=== PATIENT | male | born 1965 | race Caucasian/White ===

== ENCOUNTER 2018-11-21 18:03 | Emergency (ER) | payer MEDICARE, MEDICAID ==
[~2018-11-21] VITALS: Ht 175.3 cm; Wt 90.9 kg
[2018-11-21] MEDS ORDERED: NORCO 325 MG-101 TAB PO (18:24)
[2018-11-21] MEDS ORDERED: NOVOLOG 100U100 U/ML SQ (18:25)
[2018-11-21] MEDS ORDERED: LANTUS PEN100 U/ML SQ ×2 (18:25)
[2018-11-21] MEDS ORDERED: AMLODIPINE BESYL5 MG PO (18:26)
[2018-11-21] MEDS ORDERED: PRINIVIL20 M1 PO (18:26)
[2018-11-21] MEDS ORDERED: COREG 6.256.25 MG/TA PO (18:26)
[2018-11-21] MEDS ORDERED: CREON 60000 U-11 ECC (18:27)
[2018-11-21] MEDS ORDERED: PROTONIX20 M1 PO (18:27)
[2018-11-21] MEDS ORDERED: CYMBALTA60 M1 PO (18:27)
[2018-11-21] MEDS ORDERED: ATORVASTATIN CA10 MG PO (18:27)
[2018-11-21] MEDS ORDERED: CARAFATE (18:27)
[2018-11-21] MEDS ORDERED: ST. JOSEPH ASPI81 MG PO (18:27)
[2018-11-21] MEDS ORDERED: CLOPIDOGREL PO (18:28)
[2018-11-21 18:50] VITALS: BP 149/91
[2018-11-21 19:11] LABS: EOS # 0.2 (0.04-0.40); EOS % 3.1 % (0.0-4.0); HEMATOCRIT 38.5 % (42.0-52.0); HEMOGLOBIN 13.5 g/dL (13.5-18.0); LYMPH# 1.7 (1.50-4.00); MEAN CELL VOLUME 86 fl (78-100); MEAN CORPUSCULAR HEMOGLOBIN 30 pg (27-31); MEAN CORPUSCULAR HGB CONC 35 g/dL (33-37); MEAN PLATELET VOLUME 9.2 fl (7.4-10.4); MONO # 0.6 (0.20-0.80); NEU # 3.3 (1.40-6.50); PLATELET COUNT 193 K/mm3 (130-400); WHITE BLOOD COUNT 5.8 K/mm3 (4.8-10.8)
[2018-11-21 19:19] LABS: ALBUMIN 3.7 g/dL (3.5-5.0)
[2018-11-21 19:20] LABS: POTASSIUM 3.9 mmol/L (3.5-5.1)
[2018-11-21 19:22] LABS: TOTAL PROTEIN 6.8 g/dL (6.4-8.3)
[2018-11-21 19:24] LABS: TOTAL BILIRUBIN 0.6 mg/dL (0.2-1.2)
[2018-11-21 19:35] LABS: TROPONIN-I 0.05 ng/mL (<0.030)
== END 2018-11-21 19:56 | disposition left against medical advice (07) ==
LOC: ED 18:03
PROVIDERS: Nurse Practitioner Family
DX: E11.43 Type 2 diabetes mellitus with diabetic autonomic (poly)neuropathy (principal); K31.84 Gastroparesis; K85.90 Acute pancreatitis without necrosis or infection, unspecified; I21.4 Non-ST elevation (NSTEMI) myocardial infarction; I10 Essential (primary) hypertension; Z79.4 Long term (current) use of insulin; E78.5 Hyperlipidemia, unspecified; Z86.73 Personal history of transient ischemic attack (TIA), and cerebral infarction without residual deficits; Z90.49 Acquired absence of other specified parts of digestive tract; Z96.651 Presence of right artificial knee joint; Z98.890 Other specified postprocedural states; Z79.02 Long term (current) use of antithrombotics/antiplatelets; Z79.82 Long term (current) use of aspirin
CPT/HCPCS: J1885; J2405; J3490; J7030